=== PATIENT | female | born 1970 ===

== ENCOUNTER 2017-08-16 07:03 | Emergency (ER) | payer OTHER ==
[2017-08-16 07:03] VITALS: BMI 32.2
[2017-08-16 07:28] VITALS: BP 115/51; PULSE 60; RESP 18; TEMP 97.4; O2SAT 98
[2017-08-16] MEDS ORDERED: Iohexol 240 (50 ml) PO ONE (07:38)
[2017-08-16] MEDS ORDERED: Sodium Chloride 0.9% 1,000 ML IV STA (07:38)
--- NOTE | 2017-08-16 07:45 | ED PDOC ---
HPI: SOB/CHF/COPD Time Seen by Provider: 08/16/17 07:25 Chief Complaint (Nursing): Abdominal Pain Chief Complaint (Provider): Abdominal Pain History Per: Patient History/Exam Limitations: no limitations Onset/Duration Of Symptoms: Days Current Symptoms Are (Timing): Still Present Additional Complaint(s): Imelda Arellano is a 47 year old female presenting to the ED for an evaluation of right lower quadrant pain occurring for 2 weeks prior to arrival. The patient reports the pain increased yesterday prompting her ED visit today. She denies nausea, vomiting, diarrhea, dysuria, urinary frequency, urinary urgency, chest pain, shortness of breath, dizziness, numbness, tingling, weakness, or headache. PMD: None provided Past Medical History Reviewed: Historical Data, Nursing Documentation, Vital Signs Vital Signs: Last Vital Signs Temp 97.4 F L 08/16/17 07:25 Pulse 60 08/16/17 07:25 Resp 18 08/16/17 07:25 BP 115/51 L 08/16/17 07:25 Pulse Ox 98 08/16/17 08:19 - Medical History PMH: No Chronic Diseases Denies: Chronic Kidney Disease - Surgical History Surgical History: Cholecystectomy - Family History Family History: States: No Known Family Hx - Social History Current smoker - smoking cessation education provided: No Ex-Smoker (has not smoked in the last 12 months): No Alcohol: None Drugs: Denies - Home Medications Home Medications: Ambulatory Orders Medication Instructions Recorded Ca Pantothenate/Folic Acid/V [Once 1 tab PO DAILY 06/28/14 Daily Multi-Vitamin] RX: Aluminum Hydroxide/Magnesium 30 ml PO TID #0 udc 06/29/14 [Maalox Plus 30 ml] RX: Gabapentin [Neurontin] 150 mg PO TID #0 cap 06/29/14 RX: Polyethylene Glycol/Polyvinyl 2 drop OS TID #0 bottle 06/29/14 [Artificial Tears] Ibuprofen [Motrin] 600 mg PO TID 7 Days tab 08/16/17 - Allergies Allergies/Adverse Reactions: Allergies Allergy/AdvReac Type Severity Reaction Status Date / Time No Known Allergies Allergy Verified 06/28/14 08:46 Review of Systems ROS Statement: Except As Marked, All Systems Reviewed And Found Negative Cardiovascular: Negative for: Chest Pain Respiratory: Negative for: Shortness of Breath Gastrointestinal: Positive for: Abdominal Pain (right lower quadrant pain ). Negative for: Nausea, Vomiting, Diarrhea Genitourinary Female: Negative for: Dysuria, Frequency, Incontinence Neurological: Negative for: Weakness, Numbness, Headache, Dizziness, Other (no tingling) Physical Exam - Reviewed Nursing Documentation Reviewed: Yes Vital Signs Reviewed: Yes - Physical Exam Appears: Positive for: Non-toxic, No Acute Distress Head Exam: Positive for: ATRAUMATIC, NORMOCEPHALIC Skin: Positive for: Normal Color, Warm, Dry Eye Exam: Positive for: Normal appearance, EOMI ENT: Positive for: Normal ENT Inspection Neck: Positive for: Normal, Painless ROM, Supple Cardiovascular/Chest: Positive for: Regular Rate, Rhythm, Chest Non Tender. Negative for: Murmur Respiratory: Positive for: Normal Breath Sounds. Negative for: Respiratory Distress Gastrointestinal/Abdominal: Positive for: Soft, Tenderness (right lower quadrant pain - lateral tenderness) Back: Positive for: Normal Inspection. Negative for: L CVA Tenderness, R CVA Tenderness Extremity: Positive for: Normal ROM. Negative for: Pedal Edema, Deformity Neurologic/Psych: Positive for: Alert, Oriented (x3). Negative for: Motor/ Sensory Deficits - Laboratory Results Result Diagrams: 08/16/17 08:22 08/16/17 08:22 Interpretation Of Abn Labs: no acute - ECG O2 Sat by Pulse Oximetry: 98 (RA) Pulse Ox Interpretation: Normal - CT Scan/US ct Other Rad Studies (CT/US): Read By Radiologist Other Rad Interpretation: no acute - Progress ED Course And Treament: 1140: Stable. AAOx3. Pain free. Tolerated PO. Medical Decision Making Medical Decision Making: Time:07:25 Impression: Right lower quadrant pain Plan: * CMP * Urine Dip * CBC (with differential0 * NS 1,000 ml IV 1,000 mls/hr * Omnipaque 240 (50 mL) PO * Toradol 15 mg IVP * CT Abd pelvis PO & IV Contrast * Reevaluation Scribe Attestation: Documented by Cookie Segundo, acting as a scribe for Ethan Valdovinos MD. Provider Scribe Attestation: All medical record entries made by the Scribe were at my direction and personally dictated by me. I have reviewed the chart and agree that the record accurately reflects my personal performance of the history, physical exam, medical decision making, and the department course for this patient. I have also personally directed, reviewed, and agree with the discharge instructions and disposition. Disposition - Clinical Impression Clinical Impression: Abdominal pain - Patient ED Disposition Is Patient to be Admitted: No Counseled Patient/Family Regarding: Studies Performed, Diagnosis, Need For Followup, Rx Given - Disposition Referrals: [facility] [Outside] - 08/19/17 Disposition: Routine/Home Disposition Time: 11:43 Condition: STABLE Additional Instructions: Return if not better in 3 days. Prescriptions: Ibuprofen [Motrin] 600 mg PO TID 7 Days tab Instructions: Acute Abdominal Pain (ED) Print Language: GHANAIAN
[2017-08-16] MEDS ORDERED: Iohexol 240 (50 ml) ONE (07:57)
[2017-08-16 08:28] LABS: BASO % 0.8 % (0.0-2.0); EOS # 0.4 K/uL (0.0-0.7); EOS % 5.5 % (0.0-4.0); HEMATOCRIT 40.7 % (34.0-47.0); LYMPH # 1.9 K/uL (1.0-4.3); LYMPH % 29.5 % (20.0-40.0); MEAN CELL VOLUME 93.6 fl (81.0-99.0); MEAN CORPUSCULAR HEMOGLOBIN 32.5 pg (27.0-31.0); MEAN CORPUSCULAR HGB CONC 34.7 g/dL (33.0-37.0); MEAN PLATELET VOLUME 9.3 fl (7.2-11.7); MONO # 0.3 K/uL (0.0-0.8); MONO % 4.8 % (0.0-10.0); NEUT # 3.9 K/uL (1.8-7.0); NEUT % 59.4 % (50.0-75.0); NRBC % 0.1 % (0.0-0.0); RED CELL DISTRIBUTION WIDTH 11.9 % (11.5-14.5); WHITE BLOOD COUNT 6.5 K/uL (4.8-10.8)
[2017-08-16 08:38] LABS: ALB/GLOB RATIO 1.6 (1.0-2.1); ALKALINE PHOSPHATASE 68 U/L (38-126); ALT/SGPT 48 U/L (9-52); AST/SGOT 23 U/L (14-36); BILIRUBIN,TOTAL 0.6 mg/dl (0.2-1.3); BLOOD UREA NITROGEN 15 mg/dl (7-17); CALCIUM 8.9 mg/dL (8.4-10.2); CARBON DIOXIDE 26 mmol/L (22-30); CHLORIDE 108 mmol/L (98-107); GFR AFRICAN-AMERICAN > 60; GLUCOSE,RANDOM 92 mg/dL (65-105); SODIUM 142 mmol/l (132-148)
[2017-08-16] MEDS ORDERED: Iohexol 300 100 ML IJ ONE (09:59)
--- NOTE | 2017-08-16 11:23 | CT ---
PROCEDURE: CT Abdomen and Pelvis with contrast HISTORY: Unspecified abdominal pain. Hip Pain. No history of recent/ related trauma provided COMPARISON: None. TECHNIQUE: Contrast dose: 95 cc Omnipaque 300. Radiation dose: Total exam DLP = 951.85 mGy-cm. This CT exam was performed using one or more of the following dose reduction techniques: Automated exposure control, adjustment of the mA and/or kV according to patient size, and/or use of iterative reconstruction technique. FINDINGS: LOWER THORAX: Unremarkable. LIVER: Hepatic steatosis. No focal masses. No intrahepatic bile duct dilatation or perihepatic ascites. GALLBLADDER AND BILE DUCTS: Status post cholecystectomy. No abnormality is seen in the gallbladder fossa. PANCREAS: Unremarkable. No gross lesion or ductal dilatation. SPLEEN: Unremarkable. ADRENALS: Unremarkable. No mass. KIDNEYS AND URETERS: Unremarkable. No hydronephrosis. No solid mass. VASCULATURE: Unremarkable. No aortic aneurysm. BOWEL: Unremarkable. No obstruction. No gross mural thickening. APPENDIX: Normal appendix. PERITONEUM: Unremarkable. No free fluid. No free air. LYMPH NODES: Unremarkable. No enlarged lymph nodes. BLADDER: Unremarkable. REPRODUCTIVE: Unremarkable. BONES: No acute fracture. OTHER FINDINGS: None. IMPRESSION: No acute findings related to/accounting for the clinical presentation. Additional benign and/or incidental findings described above.
== END 2017-08-16 11:57 | disposition home or self-care (01) ==
LOC: H.ER 07:03
DX: R10.31 Right lower quadrant pain (principal); J44.9 Chronic obstructive pulmonary disease, unspecified; Z87.891 Personal history of nicotine dependence
CPT/HCPCS: 74177; 80053; 81025; 85025; 96361; 96374; 99283; J1885; J7040; Q9966; Q9967